=== PATIENT | female | born 1990 | race Caucasian/White ===

== ENCOUNTER 2018-06-16 19:22 | Emergency (ER) | payer BC ==
[~2018-06-16] VITALS: Ht 162.6 cm; Wt 71.0 kg
[2018-06-16 19:52] VITALS: BP 143/80
[2018-06-16] MEDS ORDERED: dexamethasone sod phosphate 10mg/ml inj PO STA (21:32)
[2018-06-16] MEDS ORDERED: ketorolac trometh. 30mg/ml inj. IM ONE (21:35)
[2018-06-16] MEDS ORDERED: PRED20TA PO (22:14)
[2018-06-16] MEDS ORDERED: AZIT250T2 PO (22:14)
== END 2018-06-16 22:49 | disposition home or self-care (01) ==
LOC: ER 19:23
DX: J02.9 Acute pharyngitis, unspecified (principal); J32.9 Chronic sinusitis, unspecified; Z79.2 Long term (current) use of antibiotics; Z79.899 Other long term (current) drug therapy
CPT/HCPCS: 96372; 99283; J1100; J1885